=== PATIENT | female | born 1995 | race Caucasian/White ===

== ENCOUNTER 2021-09-17 10:52 | Emergency (ER) | payer SELFPAY ==
[~2021-09-17] VITALS: Ht 167.6 cm; Wt 68.0 kg
--- NOTE | 2021-09-17 11:25 | NUR ---
BIBS FOR C/O GENERALIZED BODY RASH THAT STARTED IN HER RIGHT AXILLA A WEEK AGO. DENIES PAIN. WILL CONTINUE TO MONITOR THE PATIENT.
--- NOTE | 2021-09-17 11:40 | NUR ---
CALLED TO ROOM IN,NO ANSWER
[2021-09-17] MEDS ORDERED: PRED20TA PO (14:25)
[2021-09-17] MEDS ORDERED: DIPH59SP5 TP (14:25)
[2021-09-17 15:31] VITALS: BP 126/70
--- NOTE | 2021-09-17 15:31 | NUR ---
Patient discharged to home in stable condition. Written and verbal after care instructions given. Patient verbalizes understanding of instruction.
== END 2021-09-17 15:32 | disposition home or self-care (01) ==
LOC: ER 11:05
DX: L23.9 Allergic contact dermatitis, unspecified cause (principal); E06.3 Autoimmune thyroiditis; Z60.2 Problems related to living alone